=== PATIENT | female | born 1995 | race American Indian/Alaskan Native ===

== ENCOUNTER 2022-10-21 08:56 | Outpatient (CLI) | payer BC | END 2022-10-21 09:00 | disposition home or self-care (01) | LOC: SONOGRAMA 08:56 | PROVIDERS: ATTEND General Practice | DX: R10.2 Pelvic and perineal pain (principal); R10.30 Lower abdominal pain, unspecified ==

== ENCOUNTER 2022-10-21 10:13 | Outpatient (CLI) | payer BC | END 2022-10-21 10:20 | disposition home or self-care (01) | LOC: LAB 10:13 | PROVIDERS: ATTEND General Practice | DX: D64.9 Anemia, unspecified (principal); E78.2 Mixed hyperlipidemia; R73.09 Other abnormal glucose; E03.9 Hypothyroidism, unspecified; E56.9 Vitamin deficiency, unspecified; E55.9 Vitamin D deficiency, unspecified; I11.9 Hypertensive heart disease without heart failure; N39.9 Disorder of urinary system, unspecified; Z11.3 Encounter for screening for infections with a predominantly sexual mode of transmission; D49.59 Neoplasm of unspecified behavior of other genitourinary organ ==

== ENCOUNTER 2024-04-27 11:25 | Emergency (ER) | payer BC ==
[~2024-04-27] VITALS: Ht 162.6 cm; Wt 79.4 kg
[2024-04-27] MEDS ORDERED: 0.9 % SODIUM CHLORIDE 1,000 ML IV STA (12:32)
[2024-04-27 12:51] LABS: HEMATOCRIT 41.4 % (36.0-45.00); HEMOGLOBIN 14.3 g/dL (12.0-15.00); MEAN CELL VOLUME 87.8 fL (80.00-100.00); MEAN CORPUSCULAR HEMOGLOBIN 30.3 pg (27.00-32.0); MEAN CORPUSCULAR HGB CONC 34.5 g/dl (32.0-36.0); PLATELET COUNT 290 K/uL (150-450); RED BLOOD COUNT 4.71 M/uL (4.00-6.00); RED CELL DISTRIBUTION WIDTH 12.3 % (11.5-14.5)
[2024-04-27 13:32] LABS: CALCIUM 10.2 mg/dL (8.5-10.1); CREATININE SERUM 0.82 mg/dL (0.55-1.02); GFR 83.01; POTASSIUM 3.79 mEq/L (3.5-5.1)
[2024-04-27 14:58] LABS: PH,URINE 6.5 (5.0-8.0); URINE APPEARANCE Clear; URINE BILIRRUBIN Negative (NEGATIVE); URINE BLOOD Negative; URINE COLOR Yellow; URINE GLUCOSE Negative (NEGATIVE); URINE KETONE Negative (NEGATIVE); URINE LEUKOCYTE Negative; URINE NITRATE Negative; URINE PROTEIN Negative (NEGATIVE); URINE UROBILINOGEN 0.2 E.U./dl
[2024-04-27 15:02] LABS: URINE BACTERIA 5568.7 uL (0.0-1933); URINE EPITHELIAL CELLS 38.7 uL (0.0-38.8); URINE RBC 7.3 uL (0.0-20.8); URINE WBC 83.4 uL (0.0-23.2)
[2024-04-27 15:25] LABS: URINE CAST 0.88 uL (0.0-1.40); URINE MUCUS SCANT
[2024-04-27] MEDS ORDERED: CEFTRIAXONE SODIUM 1,000 MG VIAL IV STA (15:32)
[2024-04-27] MEDS ORDERED: CEFTRIAXONE SODIUM 1,000 MG VIAL ONE (15:35)
== END 2024-04-27 17:06 | disposition home or self-care (01) ==
LOC: ER 11:27
PROVIDERS: General Practice
DX: R53.81 Other malaise (principal); R10.9 Unspecified abdominal pain; N20.0 Calculus of kidney; Z88.1 Allergy status to other antibiotic agents

== ENCOUNTER 2024-05-25 17:32 | Emergency (ER) | payer BC ==
[~2024-05-25] VITALS: Ht 160 cm; Wt 77.1 kg
== END 2024-05-25 22:41 ==
LOC: ER 17:35
DX: N20.0 Calculus of kidney (principal); Z87.442 Personal history of urinary calculi; R10.9 Unspecified abdominal pain; Z88.1 Allergy status to other antibiotic agents